=== PATIENT | female | born 1990 ===

== ENCOUNTER 2017-01-18 13:09 | Observation (INO) | payer OTHER ==
[2017-01-18 13:20] VITALS: BP 121/67; PULSE 86; RESP 16; TEMP 98.4
[2017-01-18] MEDS ORDERED: TDAP Vaccine 0.5 mL Syr IM ONE (13:28)
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
[2017-01-18] MEDS ORDERED: Oxycodone/Acetaminophen 5/325 mg Tab ONE (15:41)
[2017-01-18] MEDS ORDERED: Oxycodone/Acetaminophen 5/325 mg Tab PO STA (15:44)
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
[2017-01-18 17:17] VITALS: O2SAT 98
== END 2017-01-18 17:00 | disposition home or self-care (01) ==
LOC: H.ER 13:09 → H.EROBSV 14:13
PROVIDERS: ADMIT Emergency Medicine; ATTEND Emergency Medicine
DX: S09.90XA Unspecified injury of head, initial encounter (principal); S49.91XA Unspecified injury of right shoulder and upper arm, initial encounter; S59.902A Unspecified injury of left elbow, initial encounter; Y35.811A Legal intervention involving manhandling, law enforcement official injured, initial encounter; Y92.9 Unspecified place or not applicable